=== PATIENT | female | born 1985 | race Caucasian/White ===

== ENCOUNTER → 2017-11-09 | Outpatient (REF) | payer SELFPAY ==
[~2017-11-09] MED LIST: ATO25 PO; BACDS PO; LOR5/325 PO; ONDA4TAB PO
== END ==
LOC: ZZSTITCHES 13:52
PROVIDERS: ATTEND Physician Assistant
DX: B18.2 Chronic viral hepatitis C (principal)
CPT/HCPCS: 82040; 82247; 82310; 82374; 82435; 82565; 82947; 84075; 84132; 84155; 84295; 84450; 84460; 84520; 86803

== ENCOUNTER → 2017-11-16 | Outpatient (CLI) | payer OTHER ==
--- NOTE | 2017-11-17 09:08 | RADIOLOGY IMAGING REPORT ---
[place] [facility] [place] NAME: SANKET JOSE : [id number] MR: [id number] V: [id number] EXAM DATE: ORDERING PHYSICIAN: JANEL VALERA TECHNOLOGIST: Jg Aguilar RDMS, SHAR PROCEDURE:US LEFT BREAST COMPARISON:None. INDICATIONS:LEFT BREAST LUMP FINDINGS: The upper portion of the Left breast was imaged from the 9-3 o'clock position. No sonographic or mammographic abnormality is identified therefore clinical follow-up recommended for patient's palpable findings. DIAGNOSTIC CATEGORY 1--NEGATIVE. RECOMMENDATIONS: CLINICAL EVALUATION. IMPRESSION: BIRADS 1: Negative. No sonographic or mammographic abnormality identified to account for patient's palpable findings in the Left breast therefore clinical follow-up recommended. Of note a negative mammogram or Ultrasound report should not preclude biopsy of the clinically suspicious lesion. Dictated by: Zainab Burnett M.D. on 11/16/2017 at 16:10 Transcribed by: ALEX on 11/16/2017 at 16:19 Approved by: Zainab Burnett M.D. on 11/17/2017 at 9:06 [facility]
--- NOTE | 2017-11-17 09:09 | RADIOLOGY IMAGING REPORT ---
FACILITY: [facility] - [place] PATIENT NAME: SANKET JOSE : [id number] MR: [id number] V: [id number] EXAM DATE: ORDERING PHYSICIAN: JANEL VALERA TECHNOLOGIST: Sasha Chamberlain PROCEDURE:BILATERAL DIAGNOSTIC DIGITAL MAMMOGRAM WITH CAD ASSISTED INTERPRETATION & 3D TOMOSYNTHESIS COMPARISON:None. INDICATIONS:LEFT BREAST LUMP FINDINGS: Extremely dense heterogeneous fibroglandular tissue is seen throughout the breasts. There is no demonstration of malignant appearing mass, malignant appearing calcifications or other secondary sign of malignancy in either breast. Today's Left breast Ultrasound also revealed no abnormality therefore clinical follow-up recommended. DIAGNOSTIC CATEGORY 1--NEGATIVE. RECOMMENDATIONS: CLINICAL EVALUATION. IMPRESSION: BIRADS 1: Negative. No mammographic or sonographic abnormality identified therefore clinical follow-up recommended for patient's palpable findings in the Left breast. Dictated by: Zainab Burnett M.D. on 11/16/2017 at 16:12 Transcribed by: ALEX on 11/16/2017 at 16:23 Approved by: Zainab Burnett M.D. on 11/17/2017 at 9:06 [facility]
--- NOTE | 2017-11-17 14:14 | RADIOLOGY IMAGING REPORT ---
FACILITY: [facility] [place] PATIENT NAME: SANKET JOSE : [id number] MR: [id number] V: [id number] EXAM DATE: ORDERING PHYSICIAN: JANEL VALERA TECHNOLOGIST: Laquita Wright RT(R)(CT) PROCEDURE:US RIGHT BREAST COMPARISON:None. INDICATIONS:Well circumscribed nodular density medial inferior Right breast. FINDINGS: In the 4 o'clock position of the Right breast there are 3 small cysts ranging in size up to 4mm likely accounting for the well circumscribed nodular density seen on Today's Right mammogram. DIAGNOSTIC CATEGORY 2--BENIGN FINDING. RECOMMENDATIONS: CLINICAL EVALUATION. IMPRESSION: BIRADS 2: Benign finding. There are 3 small cysts 4 o'clock position of the Right breast measuring up to 4mm likely accounting for Today's mammographic findings on the Right. Dictated by: Zainab Burnett M.D. on 11/17/2017 at 9:09 Transcribed by: ALEX on 11/17/2017 at 9:56 Approved by: Zainab Burnett M.D. on 11/17/2017 at 14:13 [facility]
== END ==
LOC: MAMO 01:11
PROVIDERS: ATTEND Nurse Practitioner Women's Health
DX: D24.2 Benign neoplasm of left breast (principal); Z80.3 Family history of malignant neoplasm of breast
CPT/HCPCS: 77062; 77066